=== PATIENT | male | born 1970 | race Caucasian/White ===

== ENCOUNTER 2021-03-23 14:26 | Outpatient (CLI) | payer OTHER, SELFPAY ==
--- NOTE | 2021-03-23 14:41 | XR_ITS ---
WS: [id number] Left hand, 3 views, 03/23/2021 Clinical Data: M79.642 - Pain in left hand Comparison: None. Findings: There is a dislocation of the middle phalanx from the proximal phalanx of the left third finger to th e ulnar side. No new fractures are seen.The remainder of the hand is unremarkable. XR/XR hand LT min 3V* 14039 Impression: Dislocation of the middle phalanx of the left third finger.
== END 2021-03-23 14:27 | disposition home or self-care (01) ==
PROVIDERS: PCP Registered Nurse; Visit Provider Registered Nurse
DX: S63.253A Unspecified dislocation of left middle finger, initial encounter (principal); X58.XXXA Exposure to other specified factors, initial encounter
CPT/HCPCS: 73130

== ENCOUNTER 2021-03-23 15:10 | Emergency (ER) | payer OTHER, SELFPAY ==
[2021-03-23 15:26] VITALS: BP 148/93; PULSE 78; RESP 15; TEMP 37; O2SAT 97; BMI 26.4
--- NOTE | 2021-03-23 15:34 | ED_ITS ---
HPI - Extremity Problem General: Chief complaint: Extremity Injury, Upper Stated complaint: Pain in Left hand/finger, X-ray already done Time Seen by Provider: 03/23/21 15:34 History of Present Illness: HPI Narrative: Patient is a 51-year-old male comes to the ED with injury to left hand. Patient says he was in [place] yesterday hunting. He tripped over some Timber and his left hand went up to catch himself in one of the ground he injured his left middle finger. Finger appears dislocated. He has some pain and swelling and deformity to left third finger. Associated symptoms: Deny chest pain, fever(s) or rash Review of Systems Const: Denies: fever(s), chills or fatigue Eyes: Denies: change in vision or eye discomfort ENMT: Denies: throat pain, odynophagia, nasal discharge or nasal congestion Card: Denies: chest pain, palpitations, edema, swelling of feet/ankles, dyspnea on exertion or orthopnea Resp: Denies: dyspnea, productive cough or non-productive cough GI: Denies: abdominal pain, nausea, vomiting, diarrhea, constipation or hematochezia : Denies: flank pain, difficulty urinating, dysuria or hematuria Musc: Reports: extremity pain ( 3rd digit on Left hand) and joint swelling ( 3rd digit on Left hand pip joint ); Denies: neck pain, back pain or extremity swelling Skin/Breast: Denies: rash or new lesions Neuro: Denies: headache(s), numbness in extremities or weakness in extremities PFS ED PFSH: Social History Smoking and tobacco status: current every day smoker Physical Exam Const: COMMON NORMALS: no acute distress, patient oriented x3 and alert GENERAL APPEARANCE: cooperative and comfortable HENMT: COMMON NORMALS: normocephalic HEAD & SCALP: normocephalic MOUTH: Normal oral and palatal mucosa present THROAT: posterior oropharynx normal and uvula midline Neck/C-Spine: COMMON NORMALS: supple GENERAL: Yes normal visual inspection Resp: COMMON NORMALS: normal respiratory effort, No retractions, No use of accessory muscles and clear to auscultation bilaterally AUSCULTATION: clear to auscultation bilaterally Cardio: COMMON NORMALS: regular rate, regular rhythm, S1 normal heart sound present, S2 normal heart sound present, No gallops present (Cardio), No clicks present (Cardio), No murmurs present (Cardio) and Peripheral pulses 2+ throughout RATE: regular rate RHYTHM: regular rhythm HEART SOUNDS: S1 normal heart sound present and S2 normal heart sound present PERIPHERAL PULSES: Peripheral pulses 2+ throughout GI: COMMON NORMALS: Normal to inspection, nondistended, normoactive bowel sounds present, Soft to palpation, non-tender and no masses PALPATION: Yes Soft to palpation : COMMON NORMALS: Yes no CVA tenderness BLADDER/KIDNEY EXAM: Yes no CVA tenderness Back/Pelvis: COMMON NORMALS: no CVA tenderness Extremity: NARRATIVE EXTREMITY EXAM: Left hand?third digit shows obvious d eformity and dislocation at the PIP joint. Neurovascular intact. Limited range of motion due to pain. Tenderness and swelling to third digit as well. GENERAL: Yes normal exam except as noted Neuro: COMMON NORMALS: patient oriented x3 and moves all extremities SENSORIUM/ORIENTATION: Yes alert Skin: GENERAL SKIN EXAM: dry skin Procedures Nerve Block Nerve Block 1: Time out performed: Yes Local Anesthetic: lidocaine 2% Amount of anesthesia used (mL): 6 Side: left Nerve Blocks: digital (3rd digit) Procedure Successful: Yes Patient Tolerated Procedure: well Complications: none Orthopedic Joint Reduction Joint #1: Time Out Performed: Yes Side: left Joint Reduction Location: finger (3rd digit) Analgesia: nerve block (With lidocaine 2%) Local Anesthesia: lidocaine 2% Amount of anesthesic used (mL): 6 Technique used: traction/counter-traction Post-reduction neuro exam: intact Post-reduction vascular: intact Post Reduction X-Ray Obtained: Yes Post Reduction X-Ray Results: reduced Splint Applied: Yes Patient Tolerated Procedure: well Course Vital Signs: Vital signs: Vital Signs Temperature 98.6 F 03/23/21 15:26 Pulse Rate 80 03/23/21 15:39 Respiratory Rate 16 03/23/21 15:39 Blood Pressure 142/89 03/23/21 15:39 Pulse Oximetry 96 03/23/21 15:39 MDM - Extremity (Nontraumatic) MDM Narrative: Medical decision making narrative: Patient is a 51-year-old male comes to the ED with a dislocated third digit on left hand. X-ray of left hand showed a dislocated middle phalanx of third digit. Nerve block was performed on third digit with lidocaine 2%. Dislocation was then reduced with traction and countertraction maneuver. Post reduction x-rays showed successful reduction. Patient was put in a finger splint and discharged home. He was told to follow-up with his PCP in 7 to 10 days for reevaluation. Return to ED precautions given. Patient understood and agreed with plan. Imaging Data^: Xray Ortho: Attestation: I personally reviewed and interpreted this imaging study as follows: Radiologist's impression: [address], [place] [address]ZWma ReportSigned Patient: Antony Brandt #: [id number]: [id number]#:[id number]/Sex: 51 / MADM Date: 03/23/21Loc: RADRoom/Bed:Attending Dr: Tiffany SAVAGE Ordering Provider/Ordering MD: Claudy Bedolla Date of Service: 03/23/21 Procedure(s): XR hand LT min 3V* [id number] Accession Number(s): [id number] Report Number: [id number] WS: [id number] Left hand, 3 views, 03/23/2021 Clinical Data: M79.642 - Pain in left hand Comparison: None. Findings: There is a dislocation of the middle phalanx from the proximal phalanx of the left third finger to the ulnar side. No new fractures are seen.The remainder of the hand is unremarkable. XR/XR hand LT min 3V* [id number] Impression: Dislocation of the middle phalanx of the left third finger. Dictated By:Nia Avelar MDSigned By:Nia Avelar MDSigned Date/Time:03/23/21 1504DD/ 1502 Discharge Plan Discharge Patient Disposition: Home Clinical Impression: Dislocation of finger Qualifiers: Encounter type: initial encounter Qualified Code(s): S63.259A - Unspecified dislocation of unspecified finger, initial encounter Condition: Stable Prescriptions: No Action No Known Home Medications RF: 0 Discharge Orders: Discharge ED (Routine); Ordered 03/23/21 Ordered By: Yair Espana Referrals: Tiffany Bedolla FNP [Primary Care Provider] - Discharge Diet: Regular Discharge Activity: Limit activity as instructed Patient Instructions: Finger Dislocation (ED) Activity Restrictions/Additional Instructions: Follow-up with medical provider as directed in 7 to 10 days reevaluation. Wear finger splint until evaluated by her primary care physician. Take [id number] Tylenol or Motrin for any pain. Return to the ER or your medical provider if condition worsens. Please read and understand discharge i nstructions. Thank you for choosing [facility] for your healthcare needs today. Please realize this is an emergency room and that we are providing you with a medical screening exam and this may not be complete and all inclusive of all the testing and or work up that you may need to determine your ailment or severity of your illness. It is very important that you follow up as instructed or that you return to the Emergency Department should you have concerns or if your condition changes or worsens in any way. Coding Level of Care Code ED Bung Dropper for Rosalba Silva Exam Comprehensive
[2021-03-23 15:39] VITALS: BP 142/89; PULSE 80; RESP 16; O2SAT 96
--- NOTE | 2021-03-23 16:20 | XRR_ITS ---
PROCEDURE INFORMATION: Exam: XR Left Hand Exam date and time: 03/23/2021 4:20 PM Age: 51 years old Clinical indication: Pain; Hand; Left; Additional info: Post reduction imaging TECHNIQUE: Imaging protocol: XR Left hand. Views: 1 or 2 views. COMPARISON: CR XR hand LT min 3V* [id number] 03/23/2021 2:54 PM FINDINGS: Bones/joints: The 3rd proximal interphalangeal joint has been reduced. The bones are intact and in normal alignment. Tiny bone fragment along the volar aspect of the 3rd proximal interphalangeal joint, suspicious for a small volar plate avulsion fracture. Soft tissues: Normal. XR/XR hand LT 2V [id number] IMPRESSION: 1. Reduction of the 3rd proximal interphalangeal (PIP) joint. 2. Suspected small volar plate avulsion fracture at the level of the 3rd PIP joint.
== END 2021-03-23 16:43 | disposition home or self-care (01) ==
PROVIDERS: Emergency Provider Physician Assistant; PCP Registered Nurse
DX: S63.283A Dislocation of proximal interphalangeal joint of left middle finger, initial encounter (principal); W01.0XXA Fall on same level from slipping, tripping and stumbling without subsequent striking against object, initial encounter; F17.210 Nicotine dependence, cigarettes, uncomplicated
CPT/HCPCS: 26770; 73120; 99282

== ENCOUNTER → 2023-07-11 10:31 | Outpatient (BNVA) | payer OTHER, SELFPAY | PROVIDERS: PCP Registered Nurse; Visit Provider Nurse Practitioner Family | DX: I10 Essential (primary) hypertension (principal); J06.9 Acute upper respiratory infection, unspecified; Z72.0 Tobacco use | CPT/HCPCS: 80053; 80061; 85025 ==

== ENCOUNTER 2023-11-11 10:41 | Outpatient (CLI) | payer OTHER, SELFPAY ==
--- NOTE | 2023-11-11 10:50 | XRR_ITS ---
PROCEDURE INFORMATION: Exam: XR Right Knee Exam date and time: 11/11/2023 11:13 AM Age: 53 years old Clinical indication: Swelling or effusion of joint; Patient HX: Pain and swelling in right knee since Saturday (11-08-23); Additional info: M25.561 - pain in right knee TECHNIQUE: Imaging protocol: Radiologic exam of the right knee. Views: 3 views. COMPARISON: No relevant prior studies available. FINDINGS: Bones/joints: No evidence of a right knee fracture or effusion. Mild chronic degenerative changes at the patellofemoral compartment. Soft tissues: Soft tissue edema surrounding the right knee. No gas in the soft tissues XR/XR knee RT 3V* [id number] IMPRESSION: Soft tissue swelling surrounding the right knee but no evidence of a fracture or right knee effusion
== END 2023-11-11 10:42 | disposition home or self-care (01) ==
PROVIDERS: PCP Registered Nurse; Visit Provider Nurse Practitioner Family
DX: M25.561 Pain in right knee (principal); M79.89 Other specified soft tissue disorders
CPT/HCPCS: 73562

== ENCOUNTER → 2025-02-19 09:32 | Outpatient (BNVA) | payer OTHER, SELFPAY | PROVIDERS: PCP Nurse Practitioner Family; Visit Provider Nurse Practitioner Family | DX: I10 Essential (primary) hypertension (principal) | CPT/HCPCS: 80053; 80061 ==